=== PATIENT | female | born 1995 | race Caucasian/White ===

== ENCOUNTER → 2017-07-19 12:17 | Outpatient (CLI) | payer OTHER, SELFPAY ==
--- NOTE | 2017-07-19 12:21 | BI_ITS ---
MAMMOGRAPHY - BILATERAL DIAGNOSTIC REASON FOR EXAM: Female, 21 years old. Left breast lump. PERTINENT HISTORY: Sister with breast cancer. TECHNIQUE: Digital bilateral breast lesley (3D mammographic acquisition) in the CC and MLO projections. 2-D mediolateral oblique (MLO) and craniocaudad (CC) views of both breasts were obtained. CAD: Full Field Digital Mammography with Computer Added Detection was performed. COMPARISON: None. Baseline examination. FINDINGS: Breast Composition: The breasts are extremely dense, which lowers the sensitivity of mammography. There are no dominant masses or suspicious calcifications. No other significant abnormalities are identified. BI/DIAG MAMM W/CAD, BILAT IMPRESSION: Negative diagnostic mammogram. With the patient's history of a palpable abnormality in the left breast, correlation with ultrasound is recommended. ASSESSMENT CATEGORY: BIRADS Category 0: Incomplete. Need additional imaging evaluation. A letter regarding these results will be sent to the patient by the facility within 30 days. Approximately 10% of breast cancers are not detected by mammography. A normal mammogram should not delay biopsy of a clinically suspicious abnormality. Electronically Signed: Malick Mccain MD at 14:25 EDT Tel [phone], Service support ,
--- NOTE | 2017-07-19 13:25 | US_ITS ---
STUDY: ULTRASOUND BREAST - LEFT REASON FOR EXAM: Female, 21 years old. Pain in the left breast. TECHNIQUE: Axial and longitudinal images of the LEFT breast were performed with a high resolution ultrasound transducer. COMPARISON: Comparison is made with prior MR abdomen today. FINDINGS: LEFT Breast: The lateral aspect of the breast was examined by ultrasound. There is homogeneous fibroglandular tissue. No solid or cystic mass lesion is seen. US/Breast Limited Unilateral IMPRESSION: Unremarkable sonographic examination of the breasts. ASSESSMENT CATEGORY: BIRADS Category 1: Negative. A letter regarding these results will be sent to the patient by the facility within 30 days. Electronically Signed: Malick Mccain MD at 15:22 EDT Tel [phone], Service support ,
== END ==
PROVIDERS: Visit Provider Obstetrics & Gynecology
DX: N63.20 Unspecified lump in the left breast, unspecified quadrant (principal); Z80.3 Family history of malignant neoplasm of breast
CPT/HCPCS: 76642; 77062; 77066; G0279

== ENCOUNTER 2021-09-13 19:20 | Inpatient (IN) | payer MEDICAID, SELFPAY ==
[2021-09-13] VITALS (9 sets, daily range): BP systolic 129–150; BP diastolic 80–94; PULSE 62–95; TEMP 36.2–36.6; O2SAT 98–100; BMI 34.7
[2021-09-13] MEDS: Lactated Ringers 1,000 ML 50 ML IV (19:50)
[2021-09-13] MEDS: 0.9% Normal Saline Single 100 ML IV.SOLN. INTRA-UTER (20:20)
[2021-09-13 20:21] LABS: Absolute Lymphocyte Count 2.07 X10^3/uL (0.83-4.51); Basophil# 0.02 X10^3/uL; Basophil% 0.1 % (0-1); Eosinophils% 0.7 % (0-5); Hemoglobin 13.1 g/dL (12.0-15.0); Lymphocyte # 2.07 X10^3/ul (0.83-4.51); Lymphocyte % 14.3 % (19-41); Mean Corp Hgb Conc 33.6 g/dL (32-36); Mean Corpuscular Hgb 30.8 pg (27.0-32.0); Mean Corpuscular Volume 91.8 fL (81-99); Mean Platelet Vol. 11.6 fl (6.2-12.0); Monocyte# 1.27 X10^3/uL; Monocyte% 8.8 % (0-10); NRBC Flagged by Analyzer 0 % (0-5); Neutrophil # 10.96 X10^3/uL (2.7-7.7); Neutrophil % 75.6 % (47-70); Platelet Count 201 K/mm3 (150-450); RBC Distribution Width CV 13.5 % (11.6-14.6); RBC Distribution Width SD 45.1 fl (35.1-43.9); Red Blood Count 4.25 M/mm3 (4.2-5.4); White Blood Count 14.5 K/mm3 (4.4-11.0)
--- NOTE | 2021-09-13 20:28 | PCM.HP.OB ---
HPI - General General Date of Admission: 09/13/21 HPI Narrative 26-year-old 2 para 0 AB 1 female presents at 41 weeks gestation for induction of labor. She denies any vaginal bleeding or leaking of fluid she denies any regular contractions. She has had good movement. has been complicated to date by history of methamphetamine use in the past, tobacco use earlier in the , and previous complicated by anencephaly. Maternal Data Information Final VERONICA: 09/06/21 Gestational age: 41 0/7 PFSH PFS Medical History (Updated 09/13/21 @ 20:[address] Cailin Lopez MD) Asthma Home Medications + DHA 1 tab PO/SL DAILY 09/13/21 [History Last Taken 09/13/21] famotidine [Pepcid] 20 mg PO BID 09/13/21 [History Last Taken Unknown] Allergy/AdvReac Type Severity Reaction Status Date / Time No Known Allergies Allergy Verified 09/13/21 20:18 Surgical History (Updated 09/13/21 @ 20:28 by Uma Maharaj) History of gynecologic surgery Social History Smoking Status: Never smoker NST FHR Rate Baby A Baseline: 140 Variability:: Moderate Accelerations:: 15 x 15 Decelerations:: None NST Reactive:: Yes FHR Category:: Category I Uterine Activity:: No regular contractions ROS Constitutional Constitutional: Denies fatigue, fever(s) or malaise Eyes Eyes: Denies change in vision ENT HEENT: Denies dizziness or headache(s) Cardiovascular Cardiovascular: Denies chest pain, dyspnea or lightheadedness Respiratory/Chest Respiratory/Chest: Denies cough or dyspnea Gastrointestinal Gastrointestinal: Denies change in bowel habits Genitourinary Genitourinary: Denies burning urination or genital lesions Integumentary Integumentary: Denies rash Neurologic Neurologic: Denies confusion, dizziness, headache(s), numbness or weakness Vital Signs Vital Signs Vital Signs: 09/13/21 19:35 09/13/21 19:38 Temperature 97.3 F L Temperature Source Temporal Pulse Rate 84 95 Blood Pressure 129/80 H BP Systolic 129 BP Diastolic 80 Pulse Ox 99 Weight Weight: 100.698 kg Body Mass Index (BMI) 34.7 Physical Exam Const alert and no apparent distress General Appearance: cooperative HEENT normocephalic Resp normal respiratory effort Cardio regular rate GI soft to palpation GI Narrative: gravid, nontender, appropriate for gestational age Extremity no calf tenderness General Extremity: edema Skin no wounds Rashes: No rashes noted Psych activity/motor behavior normal Labs Labs Labs: Blood Type Pending Antibody Screen Pending Hct 39.0 % (37-47) Hgb 13.1 g/dL (12.0-15.0) Assessment & Plan (1) 41 weeks gestation of : PLAN: Risk, benefits, and alternatives to induction of labor at 41 weeks gestation were discussed with the patient, her questions were answered to her satisfaction she desires to proceed. We will proceed with Villasenor and Pitocin and artificial rupture membranes induction of labor. May have epidural, IV medication or nitrous oxide applied as needed. Estimated weight is less than 4500 g and pelvis clinically adequate to expect vaginal delivery. (2) Nulliparity: (3) Encounter for induction of labor:
[2021-09-13 21:12] LABS: Amphetamine Urine VISTA NEGATIVE (<1000 ng/mL); Barbiturate Urine VISTA NEGATIVE (< 200 ng/mL); Benzodiazepine Urine VISTA NEGATIVE (< 200 ng/mL); Cocaine Urine VISTA NEGATIVE (< 300 ng/mL); Ecstacy Urine VISTA NEGATIVE (< 500 ng/mL); Methadone Urine VISTA NEGATIVE (< 300 ng/mL); PCP Urine VISTA NEGATIVE (< 25 ng/mL); THC Urine VISTA POSITIVE (< 50 ng/mL); Vista UDS pH Range 6
[2021-09-13] MEDS: Oxytocin 30 units/NS 500 ml 30 UNITS/500 ML IV.SOLN IV (22:01)
[2021-09-13] MEDS: Ondansetron 4 MG/2 ML Vial IV (23:25)
[2021-09-14] VITALS (51 sets, daily range): BP systolic 103–153; BP diastolic 55–97; PULSE 59–115; RESP 14–18; TEMP 35.8–36.6; O2SAT 88–100
[2021-09-14] MEDS: Lactated Ringers 500 ML 999 ML IV ×4 (01:41→09:43)
[2021-09-14] MEDS: Penicillin G 3,000,000 Units 50 ML 75 UNITS IV ×2 (02:48→06:43)
[2021-09-14] MEDS: fentaNYL-bupivacaine (epidural) 100 ML BAG EPIDURAL ×2 (02:59→06:43)
[2021-09-14] MEDS: Lactated Ringers 1,000 ML 200 ML IV (06:06)
--- NOTE | 2021-09-14 06:29 | PCM.PN.BLA ---
Progress Note Pain well controlled with epidural. Physical Exam Narrative Cervix 5/90/-2. Artificial rupture membranes performed with return of moderate amount of thick meconium stained fluid. IUPC and scalp electrode placed. Assessment & Plan Assessment/Plan (1) Meconium in amniotic fluid: PLAN: Substitute Teacher notified. Continue expectant management for vaginal delivery. Restart Pitocin as able with heart rate tracing (2) 41 weeks gestation of : (3) Encounter for induction of labor:
[2021-09-14] MEDS: Ondansetron 4 MG/2 ML Vial IV ×2 (07:01→18:02)
[2021-09-14] MEDS: Amnioinfusion- 0.9% NS 1,000 ML IV.SOLN. 1000 ML INTRA-UTER (10:06)
[2021-09-14] MEDS: Acetaminophen 500 MG Tablet PO (10:44)
[2021-09-14] MEDS: Cefazolin 2 GM in 0.9% Normal Saline 100 ML IV (11:00)
--- NOTE | 2021-09-14 11:41 | OP.PCM_ITS ---
Assessment & Plan (1) Meconium in amniotic fluid: (2) Encounter for induction of labor: (3) Nulliparity: (4) 41 weeks gestation of : (5) Non-reassuring electronic monitoring tracing: Maternal Data Information Final VERONICA: 09/06/21 Gestational age: 41 1/7 Details Operative Information Date of Procedure: 09/14/21 Pre-Operative Diagnosis: persistent category 2 FHTs remote from delivery Post-Operative Diagnosis: same Classification: ELEAZAR Procedure Type: low transverse sergeant missile crewman #1: Colby Lee Type of Anesthesia: Epidural Anesthesiologist: Negin Sherman Antibiotic Given: Ancef 2 grams IV x1 and Zithromax 500 mg/5 mL X1 Drain: Villasenor to straight drain Estimated Blood Loss: 800 Fluids Replaced: 900 Procedure Start Time: 11:14 Procedure Stop Time: 11:16 Time of Delivery: 11:41 Findings Description of Procedure: The patient was taken to the operating room. She was prepped and draped in the dorsal supine position with a leftward tilt. A Pfannenstiel skin incision was made approximately 2 cm above the symphysis pubis and carried through to underlying layer fascia with the scalpel. The fascia was incised incised in the midline and extended laterally with blunt dissection. The fascia was dissected off the rectus muscles with blunt dissection. The rectus muscles were in the midline and the peritoneum was entered bluntly. The peritoneal incision was stretched and the bladder blade was placed. The uterine incision was made in a low transverse fashion with the scalpel and extended superiorly and inferiorly with blunt dissection. The amniotic membranes were ruptured bluntly and thick meconium stained fluid returned. The infant's head was brought to the incision in the flexed position and delivered without difficulty. The remainder of the infant was delivered with gentle traction and fundal pressure in the standard fashion. The mouth and nares were bulb suctioned. The cord was clamped and cut as the infant was stimulated. Cord clamping was not delayed. The infant was handed off to the waiting nursing staff. The placenta was delivered with fundal massage and gentle traction in the standard fashion. The uterus was exteriorized and cleared of all clots and debris. . The uterine incision was closed with #1 Vicryl in a running locked fashion. A second layer of the same suture was used in an imbricating fashion. The incision was examined and was found to be hemostatic. The uterus was placed back into the peritoneal cavity and hemostasis was again confirmed. The rectus muscles were examined and any bleeding was Bovie cauterized. The parietal peritoneum and rectus muscles were closed en bloc with an 0 Vicryl running suture. The surgical teams outer gloves were then changed. The rectus fascia was examined and any bleeding was Bovie cauterized and the rectus fascia was closed with 0 PDS suture in a running standard fashion. The subcutaneous tissue was examining and any bleeding was Bovie cauterized. The subcutaneous tissue was reapproximated with 3-0 Vicryl suture. The skin was closed in a subcuticular fashion by the FRENCH EDGE OPERATOR with me present in the labor and delivery suite. I performed the remainder of the procedure with assistance. All sponge, lap, and needle counts were correct. The patient was taken to her room for recovery in a stable condition. Presentation: Positive for Vertex Amniotic Membrane Rupture Type: Artificial Amniotic Fluid Description: Thick meconium Placental Delivery Description: Expressed Placenta Disposition: [facility] Cord Vessel Description: 3 Vessels Cord Entanglement: None Cord Gases: ABG and VBG A Gender: Male ([place]) (1 minute): 8 (5 minute): 9 Delayed Cord Clamping: No Complications Complications: none Admit VTE Documentation VTE Present on Admission: No VTE Mechan Device Prophylaxis: SCD's VTE Pharm Prophylaxis Ordered: No Reason Prophylaxis Not Ordered: Procedure Not Indicated
[2021-09-14] MEDS: Ketorolac 30 MG/ML Syringe IV ×2 (13:01→19:25)
[2021-09-14] MEDS: Oxytocin 30 units/NS 500 ml 30 UNITS/500 ML IV.SOLN 167 UNITS IV (13:07)
[2021-09-14] MEDS: Lactated Ringers 1,000 ML 100 ML IV (15:57)
--- NOTE | 2021-09-14 17:15 | NURSING ---
report received from David Alvarez RN
[2021-09-14] MEDS: Acetaminophen 500 MG Tablet 1000 MG PO ×2 (17:25→22:59)
[2021-09-15] MEDS: Ketorolac 30 MG/ML Syringe IV ×2 (02:10→07:09)
[2021-09-15] MEDS: 0.9% Saline Lock 10 ML Syringe IV ×2 (02:10→07:09)
[2021-09-15 04:20] VITALS: BP 108/76; PULSE 74; RESP 16; TEMP 35.8; O2SAT 100
[2021-09-15] MEDS: Acetaminophen 500 MG Tablet 1000 MG PO ×4 (04:29→22:45)
[2021-09-15 06:05] LABS: Hemoglobin 12.1 g/dL (12.0-15.0); Mean Corp Hgb Conc 33.6 g/dL (32-36); Mean Corpuscular Hgb 31.4 pg (27.0-32.0); Mean Corpuscular Volume 93.5 fL (81-99); Mean Platelet Vol. 11.2 fl (6.2-12.0); Platelet Count 146 K/mm3 (150-450); RBC Distribution Width CV 13.8 % (11.6-14.6); RBC Distribution Width SD 46.8 fl (35.1-43.9); Red Blood Count 3.85 M/mm3 (4.2-5.4); White Blood Count 14.6 K/mm3 (4.4-11.0)
--- NOTE | 2021-09-15 08:15 | PCM.PN.OB ---
Subjective Subjective Patient is doing well. Pain is well controlled. She is ambulating without difficulty. Tolerating regular diet without nausea or vomiting. Denies lightheadedness, dizziness, chest pain, shortness of breath, leg pain. Villasenor was just removed and she has not spontaneously voided yet. She desires to stay another night. Objective Data Objective Data Vital Signs: Vital Signs Temp Pulse Resp BP Pulse Ox 96.5 F L 74 16 108/76 100 09/15/21 04:20 09/15/21 04:20 09/15/21 04:20 09/15/21 04:20 09/15/21 04:20 Oxygen Delivery Method Room Air Weight: 222 lb Body Mass Index (BMI) 34.7 Intake & Output: Intake and Output for Last 24 Hours 09/13/21 09/14/21 09/15/21 23:59 23:59 23:59 Intake Total 265.94 / 265.94 4564.40 / 4564.40 1000 / 1000 Output Total 1300 / 1300 400 / 400 Balance 265.94 / 265.94 3264.40 / 3264.40 600 / 600 Lab / Micro Data Result Diagrams: 09/15/21 06:00 Labs: Laboratory Results - last 24 hr 09/15/21 06:00: WBC 14.6 H, RBC 3.85 L, Hgb 12.1, Hct 36.0 L, MCV 93.5, MCH 31.4, MCHC 33.6, RDW Std Deviation 46.8 H, RDW Coeff of Ryan 13.8, Plt Count 146 L, MPV 11.2 Micro: Microbiology 09/13/21 19:50 Nasal Secretion SARS-CoV-2 Antigen (Rapid) - Final Physical Exam Const alert and no apparent distress General Appearance: comfortable HEENT normocephalic Resp normal respiratory effort GI soft to palpation and non-distended GI Narrative: ATTP Extremity no calf tenderness Assessment & Plan (1) Delivery by section: COMMENT: POD#1 PLTCS for NRFHT PLAN: Patient is doing well. CBC reviewed. Vital signs are stable. She desires to stay another night. Routine postoperative care. Anticipate discharge tomorrow.
[2021-09-15 08:44] VITALS: BP 110/78; PULSE 70; RESP 17; TEMP 36.1; O2SAT 100
[2021-09-15] MEDS: Famotidine 20 MG Tablet PO ×2 (10:31→22:45)
[2021-09-15] MEDS: Senna/Docusate Sodium 1 Tablet PO (10:32)
[2021-09-15 12:30] VITALS: BP 110/67; PULSE 74; RESP 17; TEMP 36.1; O2SAT 98
[2021-09-15] MEDS: Ibuprofen 600 MG Tablet PO ×2 (13:42→19:27)
[2021-09-15 17:29] VITALS: BP 114/75; PULSE 70; RESP 16; TEMP 36.3; O2SAT 98
[2021-09-15 20:15] VITALS: BP 118/80; PULSE 74; RESP 16; TEMP 36.1; O2SAT 100
[2021-09-16] MEDS: Ibuprofen 600 MG Tablet PO ×3 (00:44→12:06)
[2021-09-16 02:05] VITALS: BP 108/71; PULSE 67; RESP 16; TEMP 36.3; O2SAT 97
[2021-09-16] MEDS: Acetaminophen 500 MG Tablet 1000 MG PO ×2 (06:17→12:09)
[2021-09-16 07:49] VITALS: BP 129/73; PULSE 85; RESP 16; TEMP 36.2; O2SAT 98
[2021-09-16] MEDS: Senna/Docusate Sodium 1 Tablet PO (10:05)
[2021-09-16] MEDS: Famotidine 20 MG Tablet PO (10:06)
--- NOTE | 2021-09-16 10:18 | PCM.DC ---
Discharge Instructions Diet Discharge Diet: No restrictions Activity Discharge Activity: May Drive (once you feel strong enough to slam on a brake or turn a steering wheel sharply) May resume sexual activity in: 6 weeks Ice area for (Minutes): 15 Weight Bearing Status: Weight bearing as tolerated Lifting Restrictions: nothing heavier than baby Dressing / Incision Call your doctor if your incision/area has: Continuous Slow Oozing, Sudden Increased Bleeding, Increased Pain/ Swelling, Increased Redness, Foul Smelling Discharge and Swelling at the incision site Call your doctor if you observe: Fever of 101 or Higher, Coldness, Increased Pain, Numbness or Tingling, Change in Color, Inability to urinate, Inability to have a bowel movement, Using more than 1 pad per hour, Shortness of breath, Dizziness, Fainting spells, Swelling in the ankles, Chest pain, Increased palpitations (irregular heartbeat), Calf discomfort and Uncontrolled pain Suture Line Care: Avoid Pulling/Pushing and Avoid Pinching/Bending Remove Dressing in: 4 days (ok to remove in the shower) Follow Up Care When: 1-2 weeks for incision check 6 weeks visit Test Results: Test results from this visit will be discussed in further detail at your follow-up appointment, if applicable. Discharge Plan Admission Admit Date/Time: 09/13/21 19:20 Primary Reason for Your Visit: delivery Attending Provider: Cailin Lopez Primary Care Provider: Care PhysicianThalia Primary Discharge Orders/Prescriptions Prescriptions: New oxycodone-acetaminophen [Percocet] 5-325 mg tablet 1 tab PO Q6H PRN (Reason: pain) 7 Days Qty: 5 RF: 0 ibuprofen 600 mg tablet 600 mg PO Q6H PRN (Reason: pain) Qty: 20 RF: 0 docusate sodium [Colace] 100 mg capsule 100 mg PO BID Qty: 30 RF: 0 Continued + DHA 1 tab PO/SL DAILY RF: 0 Discontinued famotidine [Pepcid] 20 mg Tablet 20 mg PO BID RF: 0 Referrals / Follow Up: Care Physician,No Primary [Primary Care Provider] -
--- NOTE | 2021-09-16 10:20 | PN.OBGYN_ITS ---
Subjective Subjective Patient is doing well. Pain is well controlled. Tolerating regular diet without nausea or vomiting. Denies chest pain, shortness of breath, leg pain, lightheadedness or dizziness. Breast-feeding without complaints. Lochia normal. She desires to go home today. Ambulating voiding without difficulty. Objective Data Objective Data Vital Signs: Vital Signs Temp Pulse Resp BP Pulse Ox 97.1 F L 85 16 129/73 H 98 09/16/21 07:49 09/16/21 07:49 09/16/21 07:49 09/16/21 07:49 09/16/21 07:49 Oxygen Delivery Method Room Air Weight: 222 lb Body Mass Index (BMI) 34.7 Intake & Output: Intake and Output for Last 24 Hours 09/14/21 09/15/21 09/16/21 23:59 23:59 23:59 Intake Total 4564.40 / 4564.40 1000 / 1000 Output Total 1300 / 1300 800 / 800 Balance 3264.40 / 3264.40 200 / 200 Lab / Micro Data Result Diagrams: 09/15/21 06:00 Micro: Microbiology 09/13/21 19:50 Nasal Secretion SARS-CoV-2 Antigen (Rapid) - Final Physical Exam Const alert and no apparent distress General Appearance: comfortable HEENT normocephalic GI soft to palpation and non-distended GI Narrative: ATTP, dressing c/d/i Extremity normal to inspection Assessment & Plan (1) Delivery by section: COMMENT: POD#2 PLTCS for NRFHT PLAN: Postop day 2 from a section. Doing well. Desires discharge and meeting milestones for going home. Discharge instructions rev iewed.
--- NOTE | 2021-09-16 10:48 | NURSING ---
This RN agrees with the assessment of the student nurse and was present during the assessment.
[2021-09-16 11:54] VITALS: BP 115/72; PULSE 66; RESP 18; TEMP 36.2; O2SAT 99
--- NOTE | 2021-09-16 12:17 | NURSING ---
Patient has made follow up to occur in 2 weeks.
== END 2021-09-16 12:30 | disposition home or self-care (01) | DRG 540 ==
PROVIDERS: Admitting Provider Obstetrics & Gynecology; Visit Provider Obstetrics & Gynecology
DX: O48.0 Post-term pregnancy (principal); O76 Abnormality in fetal heart rate and rhythm complicating labor and delivery; O77.0 Labor and delivery complicated by meconium in amniotic fluid; Z20.822 Contact with and (suspected) exposure to COVID-19; Z3A.41 41 weeks gestation of pregnancy; Z37.0 Single live birth; Z87.891 Personal history of nicotine dependence
CPT/HCPCS: 59025; 59050; 80307; 85025; 85027; 86850; 86900; 86901; 87811; 99218; 99251; J7030; J7120; A4216; G0378; G0463; J2405